=== PATIENT | male | born 1990 | race African-American/Black ===

== ENCOUNTER 2024-07-13 14:04 | Outpatient (CLI) | payer OTHER, SELFPAY | END 2024-07-13 14:05 | disposition home or self-care (01) | LOC: AMB 07-16 01:44 | PROVIDERS: Visit Provider Family Medicine | DX: S29.9XXA Unspecified injury of thorax, initial encounter (principal); S09.90XA Unspecified injury of head, initial encounter; S89.91XA Unspecified injury of right lower leg, initial encounter; V69.00XA Driver of heavy transport vehicle injured in collision with unspecified motor vehicles in nontraffic accident, initial encounter; Y92.410 Unspecified street and highway as the place of occurrence of the external cause | CPT/HCPCS: A0425; A0429 ==

== ENCOUNTER 2024-07-13 14:29 | Emergency (ER) | payer OTHER, SELFPAY ==
[2024-07-13] VITALS (46 sets, daily range): BP systolic 114–179; BP diastolic 62–96; PULSE 90–129; RESP 14–18; TEMP 36.7; O2SAT 95–100; BMI 25.8
[2024-07-13] MEDS: 0.9 % SODIUM CHLORIDE 1000 ml 1,000 ML IV ×2 (14:30→18:32)
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
[2024-07-13 14:56] LABS: Basophils Absolute Auto 0.04 K/uL (0.00-0.30); Basophils Percent Auto 0.7 % (0.0-3.0); Eosinophils Absolute Auto 0.07 K/uL (0.00-0.50); Eosinophils Percent Auto 1.2 % (0.0-7.0); Hematocrit 52.3 % (37.0-53.0); Hemoglobin* 17.7 gm/dL (13.5-17.5); Immature Granulocytes Abs Auto 0.03 K/uL (0.00-0.30); Immature Granulocytes Pct Auto 0.5 %; Lymphocytes Absolute Auto 2.39 K/uL (0.90-2.90); Mean Corpuscular HGB Conc 34 gm/dL (32-36); Mean Corpuscular Hemoglobin 32 pg (26-34); Mean Corpuscular Volume 94 fL (80-100); Monocytes Percent Auto 6.2 % (0.0-11.0); Neutrophils Absolute Auto 2.81 K/uL (1.7-7.0); Neutrophils Percent Auto 49.4 % (42.0-72.0); Platelet Count* 227 K/uL (140-440); RDW Coefficient of Variation % 12.2 % (11.5-15.5); Red Blood Count 5.56 m/uL (4.30-5.90); White Blood Count* 5.69 K/uL (4.50-11.00)
[2024-07-13 15:04] LABS: Slide Review Reflex No
--- NOTE | 2024-07-13 15:04 | ED_ITS ---
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 spondylolisthesis. Vertebral body heights are maintained. Craniocervical junction appears within normal limits. No acute fracture identified. Spinal canal and neural foramina appear widely patent. No concerning findings identified in the paraspinal soft tissues. No evidence of pneumothorax within the included lung apices. Impression: 1. No evidence of acute fracture or traumatic malalignment in the cervical spine. <Adrienne Yap MD - Last Filed: 07/13/24 18:31> CT Chest/Ab/Pelvis: Attestation: I have reviewed the pertinent imaging results. <Adrienne Yap MD - Last Filed: 07/13/24 18:31> My impression: I do not note any acute fractures. <Adrienne Yap MD - Last Filed: 07/13/24 18:31> Radiologist's impression: Chest: No appreciable thyroid nodules. No thoracic lymphadenopathy. Likely minimal residual thymic tissue in the anterior mediastinum. The heart is within normal limits in size. No pericardial effusion. The thoracic aorta and pulmonary artery are within normal limits in caliber. No appreciable aortic dissection. No central pulmonary embolism. No focal airspace consolidation, pleural effusion, or pneumothorax. No suspicious pulmonary nodules or masses. The airways are clear. Abdomen/pelvis: The liver, gallbladder and biliary system, spleen, pancreas, adrenal glands, kidneys, ureters, bladder, seminal vesicles, prostate, and visualized external genitalia are unremarkable in appearance with no CT evidence of acute traumatic injury. No evidence of bowel obstruction, inflammation, or acute traumatic injury. The appendix is within normal limits in appearance. Few colonic diverticula without CT evidence of acute diverticulitis. No free fluid or free air. No abscess. No abdominopelvic lymphadenopathy. The vasculature is unremarkable. Soft tissue/musculoskeletal: Minimal bilateral gynecomastia. Small fat containing umbilical hernia. No acute fracture or malalignment. The osseous structures are unremarkable in appearance. Impression: No CT evidence of acute traumatic injury. <Adrienne Yap MD - Last Filed: 07/13/24 18:31> Facial CT: Attestation: I have reviewed the pertinent imaging results. <Adrienne Yap MD - Last Filed: 07/13/24 18:31> My impression: I do not note any fractures <Adrienne Yap MD - Last Filed: 07/13/24 18:31> Radiologist's impression: Findings: The facial bones appear grossly intact, without evidence of acute fracture. The bony orbits and their contents appear atraumatic. No radiopaque foreign body or abnormal soft tissue emphysema. The sinonasal cavities are clear. The nasal septum is relatively midline. The mastoid air cells are clear. Incidental right-sided cerumen. The temporomandibular joints appear within normal limits. No suspicious findings on the regional soft tissues. Impression: 1. No evidence of acute facial bone fracture. <Adrienne Yap MD - Last Filed: 07/13/24 18:31> Right knee x-ray: Attestation: I have reviewed the pertinent imaging results. <Adrienne Yap MD - Last Filed: 07/13/24 18:31> My impression: I do not note any acute fracture <Adrienne Yap MD - Last Filed: 07/13/24 18:31> Radiologist's impression: Findings: There is no displaced fracture or dislocation. The joint spaces are grossly preserved. The soft tissues are unremarkable. Impression: No acute osseus abnormality. <Adrienne Yap MD - Last Filed: 07/13/24 18:31> ECG Data Attestation: I personally reviewed and interpreted this ECG as follows: <Adrienne Yap MD - Last Filed: 07/13/24 18:31> ECG interpretation date: 07/13/24 <Adrienne Yap MD - Last Filed: 07/13/24 18:31> Interpretation: EKG by my read shows sinus rhythm at a rate of 99. Do not see any evidence of acute injury, right heart strain. AK and QT T intervals within normal limits. <Adrienne Yap MD - Last Filed: 07/13/24 18:31> Discharge Plan Discharge Prescriptions: No Action No Known Home Medications <Adrienne Yap MD - Last Filed: 07/13/24 18:31> Follow Up/Referrals: Provider,Not a Local [Primary Care Provider] - <Adrienne Yap MD - Last Filed: 07/13/24 18:31>
[2024-07-13 15:11] LABS: Albumin* 4.7 g/dL (3.3-5.0)
[2024-07-13 15:12] LABS: Chloride* 101 mmol/L (96-114); Potassium* 3.5 mmol/L (3.6-5.1); Sodium* 137 mmol/L (135-149)
[2024-07-13 15:14] LABS: Bilirubin Total* 0.5 mg/dL (0.1-1.5); Creatinine* 0.9 mg/dL (0.5-1.5); Estimated Glomerular Filt Rate 116 ml/min
[2024-07-13 15:15] LABS: Alanine Aminotransferase* 32 U/L (4-50); Alkaline Phosphatase* 50 U/L (40-150); Anion Gap 9 mEq/L (7-15); Aspartate Amino Transferase* 30 U/L (12-35); Blood Urea Nitrogen* 16 mg/dL (5-24); Calcium* 9.6 mg/dL (8.4-10.6); Carbon Dioxide* 27 mmol/L (20-32); Glucose* 124 mg/dL (60-115); Total Protein* 7.6 g/dL (6.0-8.3)
[2024-07-13 15:31] LABS: Troponin I* < 0.01 ng/mL (0.01-0.04)
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
[2024-07-13 16:17] LABS: Appearance Urine Clear (Clear); Bilirubin Urine Negative (Negative); Blood Urine Negative (Negative); Color Urine Yellow (Yellow); Glucose Urine Negative (Negative); Ketones Urine Negative (Negative); Leukocyte Esterase Urine Negative (Negative); Nitrite Urine Negative (Negative); Protein Urine Negative (Negative); Urobilinogen Urine 0.2 (0.2-1.0); pH Urine 7.5 (5.0-8.5)
[2024-07-13 16:23] LABS: RBC Urine 0-2 (0-2); WBC Urine 0-2 (0-5)
[2024-07-13] MEDS: KETOROLAC 15 MG/ML inj IVP (17:35)
== END 2024-07-13 20:42 | disposition home or self-care (01) ==
PROVIDERS: Emergency Provider Family Medicine
DX: M25.561 Pain in right knee (principal); R07.89 Other chest pain
CPT/HCPCS: 36415; 70450; 70486; 71260; 72125; 73562; 74177; 80053; 81001; 84484; 85025; 93005; 94761; 96374; 99285; 99291; G0390; J1885; J7030; Q9967